=== PATIENT | female | born 1975 | race Two or more races ===

== ENCOUNTER 2017-03-26 13:25 | Emergency (ER) | payer BC ==
[2017-03-26 13:41] VITALS: BP 133/80
[2017-03-26] MEDS ORDERED: Clindamycin CAP* 150 MG PO ONE (15:01)
[2017-03-26] MEDS ORDERED: predniSONE TAB* 20 MG PO ONE (15:01)
[2017-03-26] MEDS ORDERED: Acetaminophen TAB* 325 MG PO ONE (15:01)
--- NOTE | 2017-03-26 15:03 | ED ---
Lynda Cano Alok, scribed for Candice Sigala MD on 03/26/17 at 1434 . Throat Pain/Nasal Congestion - HPI Summary HPI Summary: 41F presents to the ED with throat pain for the past week. Pt also notes myalgia and HIDALGO. Pt also notes a subjective fever yesterday. Pt denies rhinnorrhea or cough. Pt denies ETOH/tobacco/drugs. pt is allergic to penicillins - History of Current Complaint Chief Complaint: EDThroatPain Time Seen by Provider: 03/26/17 14:06 Hx Obtained From: Patient Onset/Duration: Lasting Days, Still Present Severity: Moderate Associated Signs And Symptoms: Negative: Nasal Discharge Cough: None PMH/Surg Hx/FS Hx/Imm Hx Endocrine/Hematology History: Denies: Hx Diabetes Cardiovascular History: Denies: Hx Hypertension - Cancer History Hx Chemotherapy: No Hx Radiation Therapy: No Infectious Disease History: No Infectious Disease History: Denies: Traveled Outside the [place] in Last 30 Days - Family History Known Family History: Positive: Other - No -Breast CA - Social History Occupation: Employed Full-time Lives: With Family Alcohol Use: None Substance Use Type: Reports: None Smoking Status (MU): Never Smoked Tobacco Review of Systems Positive: Fever Positive: Sore Throat. Negative: Nasal Discharge Negative: Cough Positive: Myalgia Positive: Headache All Other Systems Reviewed And Are Negative: Yes Physical Exam Triage Information Reviewed: Yes Vital Signs On Initial Exam: Initial Vitals Temp Pulse Resp BP Pulse Ox 98.2 F 56 20 133/80 100 03/26/17 13:39 03/26/17 13:39 03/26/17 13:39 03/26/17 13:39 03/26/17 13:39 Vital Signs Reviewed: Yes Appearance: Positive: Well-Appearing, No Pain Distress Skin: Positive: Warm, Skin Color Reflects Adequate Perfusion, Dry Eyes: Positive: EOMI, VINCENZO ENT: Positive: Pharyngeal erythema - Beefy, red, TMs normal Neck: Positive: Supple, Nontender Respiratory/Lung Sounds: Positive: Clear to Auscultation, Breath Sounds Present. Negative: Rales, Rhonchi, Wheezes Cardiovascular: Positive: RRR, Other - No Gallop. Negative: Murmur, Rub Abdomen Description: Positive: Nontender, Soft, Other: - No rebound. Negative: Distended, Guarding Bowel Sounds: Positive: Present Musculoskeletal: Positive: Strength/ROM Intact. Negative: Edema Left, Edema Right Neurological: Positive: Sensory/Motor Intact, Alert, Oriented to Person Place, Time, CN Intact II-III Psychiatric: Positive: Affect/Mood Appropriate Diagnostics - Vital Signs Vital Signs Temp Pulse Resp BP Pulse Ox 03/26/17 13:41 98.5 F 58 20 133/80 100 03/26/17 13:39 98.2 F 56 20 133/80 100 - Laboratory Lab Results: Lab Results 03/26/17 Range/Units 14:30 Group A Strep Rapid Positive H (Negative) Lab Statement: Any lab studies that have been ordered have been reviewed, and results considered in the medical decision making process. EENT Course/Dx - Course Course Of Treatment: 41 yo female with strep throat, allergic to penicillin started on clinda and given one dose of prednisone to help with swelling - Diagnoses Provider Diagnoses: Strep pharyngitis Discharge - Discharge Plan Condition: Stable Disposition: HOME Prescriptions: Clindamycin Cap(NF) [Cleocin 300 mg Cap(NF)] 300 mg PO TID #30 cap The documentation as recorded by the Lynda hurt Alok accurately reflects the service I personally performed and the decisions made by , Candice Sigala MD.
== END 2017-03-26 15:19 | disposition home or self-care (01) ==
LOC: ED 13:25
DX: J02.0 Streptococcal pharyngitis (principal); R50.9 Fever, unspecified; J02.9 Acute pharyngitis, unspecified; R51 Headache; M79.1 Myalgia
CPT/HCPCS: 87651; 99282; A9270-GY; J7512